=== PATIENT | male | born 1995 | race African-American/Black ===

== ENCOUNTER 2017-06-30 22:54 | Emergency (ER) | payer BC | END 2017-07-01 00:56 | disposition home or self-care (01) | LOC: D.ER 22:54 → EDBD 22:54 → D.ER 07-01 00:56 | DX: S29.012A Strain of muscle and tendon of back wall of thorax, initial encounter (principal); V43.52XA Car driver injured in collision with other type car in traffic accident, initial encounter; Y93.89 Activity, other specified; Y92.410 Unspecified street and highway as the place of occurrence of the external cause; F17.200 Nicotine dependence, unspecified, uncomplicated ==